=== PATIENT | male | born 1975 | race Caucasian/White ===

== ENCOUNTER 2016-12-30 08:25 | Emergency (ER) | payer OTHER ==
[~2016-12-30] VITALS: Ht 170.2 cm; Wt 91.9 kg
[~2016-12-30 08:25] MED LIST: BUPR-102 PO
[2016-12-30 08:31] VITALS: BP 145/104; PULSE 92; TEMP 36.7; O2SAT 96; Ht 170.2 cm; Wt 91.9 kg
--- NOTE | 2016-12-30 09:01 | EMERGENCY ROOM VISIT NOTE ---
History First contact with patient: 08:40 Chief Complaint: TESTICULAR PAIN Stated Complaint: LUMP ON RIGHT TESTICLE Nursing Triage Summary: triage note: Pt reports "i have a lump on my right testicle, i noticed it today." History of Present Illness The patient is a 41 year old male who presents to the Emergency Room with complaints of right testicular pain. He classifies the pain as 7/10 and radiates into the suprapubic area. The pain is constant, achy, squeezing like pain, and relieved with elevating the testicles. He denies any nausea, vomiting , dysuria, hematuria, change in odor of urine, fevers, or chills. He denies any history of sexually active diseases. He is not currently sexually active. Patient denies any trauma to the testicular area. Review of Systems See HPI for pertinent positives and negatives. A total of ten systems were reviewed and were otherwise negative. Past Medical/Surgical History Medical Problems: (1) Alcohol intoxication (2) Bruising (3) Closed fracture of distal clavicle (4) Closed fracture of distal clavicle (5) Paresthesia Family History Patient reports no known family medical history. Social History Smoking Status: Never Smoker Alcohol Use: occasionally Drug Use: none Marital Status: single Housing Status: lives alone Occupation Status: employed Current/Historical Medications Scheduled Bupropion Hcl (Smoking Deterre (Bupropion Hcl Sr), 150 MG PO DAILY Allergies Coded Allergies: Vitamin B12 (Verified Allergy, Unknown, HISTAMINE REACTION, 07/13/16) PER PT Physical Exam Vital Signs Date Time Temp Pulse Resp B/P Pulse Ox O2 Delivery O2 Flow Rate FiO2 12/30/16 08:31 36.7 92 18 145/104 96 Room Air Physical Exam GENERAL: Awake, alert, well-appearing, in mild distress HENT: Normocephalic, atraumatic. EYES: Normal conjunctiva. Sclera non-icteric. GENITAL: Testicles not edematous or inflammed. No visible deformity. Penis appears grossly normal without lesions or rash. Patient states tenderness resolved with elevation of testes. NEURO: Normal sensorium. No sensory or motor deficits noted. SKIN: No rash or jaundice noted. Medical Decision & Procedures Medical Decision Patient is a 41 year old male that presents with right testicular pain - Ordered Ultrasound of Scrotum and Testes - Patient left hospital without notifying staff prior to the US being performed and being further evaluated - Nursing staff will attempt to contact the patient Departure Information Dispostion Other (Patient left prior to US and further evaluation) Condition OTHER (Undetermine, patient left before full assessment) Referrals Kailash Mtz M.D. (PCP) Patient Instructions [facility]
--- NOTE | 2016-12-30 09:07 | EMERGENCY ROOM VISIT NOTE ---
History Report prepared by Scribe: Dilcia Munoz Under the Supervision of: Dr. Jovita Benito M.D. First contact with patient: 08:37 Chief Complaint: TESTICULAR PAIN Stated Complaint: LUMP ON RIGHT TESTICLE Nursing Triage Summary: triage note: Pt reports "i have a lump on my right testicle, i noticed it today." History of Present Illness The patient is a 41 year old male who presents to the Emergency Room with complaints of constant right testicle pain beginning this morning. The patient states that he has been feeling testicular squeezing since he woke up this morning. He reports that he feels a lump on his right testicle and notes that his pain is relieved with elevation of his testicles. The patient denies any dysuria, hematuria, trauma, STD history, and recent sexual activity. Source of History: patient Onset: this morning Position: other (right testicle) Quality: other (squeezing) Timing: constant Modifying Factors (Relieving): other (elevation) Note: Pt complains of a lump on the testicle. The patient denies any dysuria, hematuria, trauma, STD history, and recent sexual activity. Review of Systems See HPI for pertinent positives & negatives. A total of 10 systems reviewed and were otherwise negative. Past Medical & Surgical Medical Problems: (1) Alcohol intoxication (2) Bruising (3) Closed fracture of distal clavicle (4) Closed fracture of distal clavicle (5) Paresthesia Family History Patient reports no known family medical history. Social History Smoking Status: Never Smoker Alcohol Use: occasionally Drug Use: none Marital Status: single Housing Status: lives alone Occupation Status: employed Current/Historical Medications Scheduled Bupropion Hcl (Smoking Deterre (Bupropion Hcl Sr), 150 MG PO DAILY Allergies Coded Allergies: Vitamin B12 (Verified Allergy, Unknown, HISTAMINE REACTION, 07/13/16) PER PT Physical Exam Vital Signs Date Time Temp Pulse Resp B/P Pulse Ox O2 Delivery O2 Flow Rate FiO2 12/30/16 08:31 36.7 92 18 145/104 96 Room Air Medical Decision & Procedures ED Course 0837: Past medical records reviewed. The patient was evaluated in room A4 by the resident. A complete history and physical examination was performed by the resident. 0924: The patient left prior to my evaluation and against medical advice. Scribe Attestation The scribe's documentation has been prepared under my direction and personally reviewed by me in its entirety. I confirm that the note above accurately reflects all work, treatment, procedures, and medical decision making performed by me. Departure Information Dispostion Against Medical Advice Referrals No Doctor, Assigned (PCP) Patient Instructions [facility]
--- NOTE | 2016-12-30 16:08 | EMERGENCY ROOM VISIT NOTE ---
ED Visit Note First contact with patient: 08:37 Resident Physician Supervision Note: I interviewed and discussed the patient with Dr. Soto. I agree with findings and plan as documented in the note. Any exceptions or clarifications are listed here: The patient left the department prior to my evaluation. He did not receive the ultrasound that was ordered. Diagnosis: Testicular pain Documented By: Jovita Benito
== END 2016-12-30 09:35 | disposition left against medical advice (07) ==
LOC: C.EDB 08:27 → C.EDA 09:35
DX: N50.811 Right testicular pain (principal); Z79.899 Other long term (current) drug therapy